=== PATIENT | female | born 1965 | race Caucasian/White ===

== ENCOUNTER 2016-06-03 09:30 | Emergency (ER) | payer OTHER ==
[~2016-06-03] VITALS: Ht 177.8 cm; Wt 95.5 kg
[~2016-06-03 09:30] MED LIST: ATEN25TA7 PO
[2016-06-03 09:31] VITALS: PULSE 117; RESP 18; O2SAT 97
--- NOTE | 2016-06-03 09:45 | ED.REPORT ---
HPI-Abd Pain F 40 and Over Date of Service Jun 03, 2016 ED Provider: The patient is a 50 year old female with history of ulcerative colitis s/p ileostomy and hypertension who presents to the emergency department complaining of nausea/vomiting/diarrhea that began 4 days ago. She first noticed that her stools were watery in her ostomy bag. She had a fever initially but this has resolved. She also complains of diffuse abdominal discomfort. She has been unable to keep up on her hydration since onset. She denies hematemesis, hematochezia, bloody/tarry stool, cough, congestion, dysuria, hematuria, or flank pain. She does not smoke tobacco or drink alcohol. Nursing Notes Stated Complaint: POSS DEHYDRATION FROM FLU Chief Complaint: Female Abdominal Pain Nursing Notes Reviewed: Yes Allergies: Coded Allergies: iodine (Verified Allergy, Severe, 03/28/09) Sulfa (Sulfonamide Antibiotics) (Verified Allergy, Unknown, itching, ) morphine (Verified Allergy, Unknown, 06/03/16) ondansetron (Verified Adverse Reaction, Mild, Local itching after IV administration, 06/03/16) Uncoded Allergies: SULFA (Allergy, Severe, 03/28/09) Scheduled Atenolol-Expunged Drug, Do Not Renew! (Atenolol-Expunged Drug, Do Not Renew!) 25 Mg Tablet 25 MG PO BID Scheduled PRN Ondansetron ODT (Zofran ODT) 4 Mg Tablet 4 MG PO Q4H PRN PRN For Nausea Miscellaneous Medications Levothyroxine (Levothyroxine) 25 Mcg Tablet General Time Seen by MD: 09:44 Chief Complaint Diarrhea moderate, Nausea, Vomiting moderate Hx Obtained From: Patient Arrived By: Walk-in Sudden in Onset?: Yes Onset Occurred: 4 days ago Symptom Duration: Since onset Progression since Onset: Constant Location: : Diffuse Quality: Painful Severity: Current: Mild Severity: Maximum: Mild Recent Healthcare: No recent doctor visit, No recent hospitalization Similar Sx Previous: No Past Medical History Past Medical History Ulcerative colitis SBO Hypertension Past Surgical History Ileostomy Family History Noncontributory Smoking History Never Smoker Social History Alcohol Use: Denies alcohol use Other Social History: Good social support, Lives with children Review of Systems Constitutional: Denies: Chills, Fever Respiratory: Denies: Non-productive cough GI: Reports: Abdominal pain, Diarrhea, Nausea, Vomiting, Denies: Bloody/tarry stool, Hematemesis, Hematochezia, Melena Female: Denies: Dysuria, Flank pain, Hematuria Complete sys rev & neg: except as marked. Ears / Nose / Throat: Denies: Nasal congestion Skin: Denies Rash Physical Exam Vital Signs Vital Signs (First) Date Time Temp Pulse Resp B/P Pulse Ox O2 Delivery O2 Flow Rate FiO2 06/03/16 09:31 36.2 117 18 97 06/03/16 09:51 120/100 06/03/16 10:19 Room Air Initial VS: Reviewed Head / Eyes: Atraumatic, Normocephalic, PERRL Neck: Supple, Non-tender, Full range of motion Lymphatic: No lymphadenopathy Extremities: Vascular intact, Neuro intact, No swelling, No tenderness Skin: Warm, Dry, No cyanosis Neurologic: Alert, Oriented, Nonfocal Psychiatric: Mood/affect normal, Behavior normal, Normal thought content General/Constitutional: Awake, Alert Respiratory / Chest: Atraumatic, Breath sounds NL, Breath sounds = bilat, No respiratory distress, No rales, No rhonchi, No wheezing, No stridor Cardiovascular: Regular rhythm, Heart sounds NL, No murmurs, No rubs Heart Rate / Rhythm: Positive: Tachycardia Abdomen: Atraumatic, Soft, Non-tender, McBurney's non-tender, No guarding, No rebound, BS normoactive, No distention, No hernia, No palpable mass, No pulsatile mass Back: Inspection NL, Non-tender, No CVA tenderness ENT: Airway patent Mouth: Positive: Mucous membranes dry Interpretation & Diagnostics Lab Results Interpretation Result Diagram: 06/03/16 1015 06/03/16 1015 Test 06/03/16 10:15 06/03/16 11:15 White Blood Count 4.6th/mm3 (3.8-10.1) Red Blood Count 6.71mil/mm3 (3.90-5.20) Hemoglobin 17.9g/dL (12.0-15.6) Hematocrit 52.6% (35.0-46.0) Mean Corpuscular Volume 78.4fL (81-100) Mean Corpuscular Hemoglobin 26.7pg (27.0-35.0) Mean Corpuscular Hemoglobin Concent 34.0% (32.0-37.0) Red Cell Distribution Width 17.1% (12.3-15.4) Platelet Count 216bil/L (150-400) Neutrophils (%) (Auto) 74.7% (40-74) Lymphocytes (%) (Auto) 12.6% (14-46) Monocytes (%) (Auto) 10.8% (4-12) Eosinophils (%) (Auto) 0.9% (0-5) Basophils (%) (Auto) 0.4% (0-3) Sodium Level 133mEq/L (134-144) Potassium Level 4.2mEq/L (3.5-5.2) Chloride Level 97mEq/L (97-108) Carbon Dioxide Level 18mmol/L (18-29) Blood Urea Nitrogen 18mg/dL (6-24) Creatinine 0.75mg/dL (0.57-1.00) Estimat Glomerular Filtration Rate 118mL/min (>59) Glucose Level 133mg/dL (60-99) Calcium Level 9.4mg/dL (8.5-10.1) Total Bilirubin 1.0mg/dL (0.0-1.2) Aspartate Amino Transf (AST/SGOT) 46U/L (0-50) Alanine Aminotransferase (ALT/SGPT) 65U/L (0-32) Alkaline Phosphatase 111U/L (25-150) Total Protein 8.4g/dL (6.4-8.4) Albumin 4.2g/dL (3.4-5.0) Hold Morris Top Tube Received (Received) Re-Eval/Medical Decision Source of Hx: Old records Re-Evaluation/Progress : Time of Eval: 11:43 Re-Evaluation/Progress Note: Rechecked the patient. She is feeling better. Discussed plan for discharge after IVF. All questions were addressed. Counseled Regarding: Diagnosis, Lab results, Need for follow-up, When/why to return to ED Discharge & Departure Primary Impression: Dehydration Additional Impression: Nausea, vomiting, and diarrhea Disposition: Home Discharge Condition All VS Reviewed: Yes Condition: Stable Additional Instructions: Thank you for entrusting us with your care today. I am sorry you are feeling poorly. You can use the Zofran as needed for nausea and vomiting. I could not access the pharmacy information regarding the antidiarrheal prescribed previously. I recommended Imodium 2 mg every time you have a diarrheal stool, if you would like me to call in the other prescription please call back and let us know what it was. After you have not vomited for a few hours you can start drinking small sips of clear liquid. You can slowly expand what you are eating and drinking. When you feel like eating I recommend eating a bland diet for the first few days which includes foods like: bananas, rice, applesauce, and toast. Followup with your regular doctor next week if your symptoms are not improving. Return to the emergency department if you develop a fever, uncontrollable vomiting, inability to keep fluids down, or any other new or concerning symptoms. Referrals: Jessica Cid MD (PCP) Scribe Attestation Portions of this note were transcribed by Erinn Pizarro. I, Dr. Cal Joiner personally performed the history, physical exam and medical decision-making; I reviewed and confirmed the accuracy of the information in the transcribed note. Signed by: Sera Gilmore, 06/03/2015 and 1150. copies to: Jessica Cid MD, Kirk H MD Jun 03, 2016 09:45 Erinn Pizarro Jun 03, 2016 09:51
[2016-06-03 09:51] VITALS: BP 120/100; PULSE 96; O2SAT 96
[2016-06-03] MEDS ORDERED: 0.9% Sodium Chloride 1,000 ML IV ONE ×2 (09:56→10:00)
[2016-06-03] MEDS ORDERED: Ondansetron 2 mg/mL 2 mL Inj IVPUSH PRN (10:00)
[2016-06-03 10:19] VITALS: BP 121/85; PULSE 88; RESP 12; O2SAT 94
[2016-06-03 10:34] LABS: BASOPHILS % (AUTO) 0.4 % (0-3); Mean Corpuscular Volume 78.4 fL (81-100)
[2016-06-03 10:43] LABS: EOSINOPHILS % (AUTO) 0.9 % (0-5); MONOCYTES % (AUTO) 10.8 % (4-12); Mean Corpuscular Hemoglobin 26.7 pg (27.0-35.0); NEUTROPHILS % (AUTO) 74.7 % (40-74); Platelet Count 216 bil/L (150-400)
[2016-06-03] MEDS ORDERED: LEVO25TA5 (11:41)
[2016-06-03] MEDS ORDERED: ONDA4TAB9 PO (11:57)
[2016-06-03 12:32] VITALS: BP 111/71; PULSE 80; RESP 15; O2SAT 97
[2016-06-03 12:45] VITALS: BP 111/71; PULSE 80; RESP 15; O2SAT 97
== END 2016-06-03 12:46 | disposition home or self-care (01) ==
LOC: SED 09:30
DX: E86.0 Dehydration (principal); R11.2 Nausea with vomiting, unspecified; R19.7 Diarrhea, unspecified; R10.84 Generalized abdominal pain; I10 Essential (primary) hypertension; Z88.2 Allergy status to sulfonamides; Z88.5 Allergy status to narcotic agent; Z88.8 Allergy status to other drugs, medicaments and biological substances
CPT/HCPCS: 36415; 80053; 85025; 96361; 96374; 99284; J2405; J7030